=== PATIENT | female | born 1980 | race Caucasian/White ===

== ENCOUNTER 2018-03-01 12:33 | Emergency (ER) | payer MEDICAID ==
[~2018-03-01 12:33] MED LIST: INSU100C6 SQ; INSU100V12 SQ
[2018-03-01 13:14] LABS: APPEARANCE,URINE Clear (CLEAR); BILIRUBIN,URINE Negative (NEGATIVE); COLOR,URINE Yellow (YELLOW); GLUCOSE, URINE (UA) >=1000 mg/dL (NEGATIVE); KETONES,URINE Negative (NEGATIVE); LEUKOCYTE ESTERASE ,URINE Trace (NEGATIVE); NITRATE,URINE Negative (NEGATIVE); OCCULT BLOOD,URINE Negative (NEGATIVE); PROTEIN,URINE Negative (NEGATIVE); UROBILINOGEN,URINE 0.2 mg/dL (0.2-1.0)
[2018-03-01 13:16] LABS: HCG,QUAL RESULT NEGATIVE (NEGATIVE)
[2018-03-01 13:22] LABS: BACTERIA,URINE Rare /HPF (None Seen); RBC,URINE None Seen /HPF (0-1)
[2018-03-01] MEDS ORDERED: ONDANSETRON HCL MDV 20ML 2 MG/ML VIAL ONE (13:27)
[2018-03-01] MEDS ORDERED: SODIUM CHLORIDE 0.9% 1000ML 1,000 ML IV ONE (13:27)
[2018-03-01 13:58] LABS: BASOPHILS % (AUTO) 0.5 % (0.0-5.0); EOSINOPHILS % (AUTO) 2.5 % (0.0-8.0); HEMATOCRIT 31.2 % (36-48); MEAN CORPUSCULAR HEMOGLOBIN 22.4 pg (27.0-33.0); MEAN CORPUSCULAR VOLUME 70.1 fL (79-99); MONOCYTES % (AUTO) 4.8 % (3.0-13.0); NEUTROPHILS % (AUTO) 74.2 % (40.0-77.0); PLATELET COUNT (AUTO) 499 K/uL (130-400); RED BLOOD CELL COUNT(AUTO) 4.46 MIL/uL (4.00-5.50); RED CELL DISTRIBUTION WIDTH 17.7 % (11.0-15.5); WHITE BLOOD COUNT (AUTO) 11.3 K/uL (4.8-10.8)
[2018-03-01 14:11] LABS: CREATININE 0.7 mg/dL (0.5-1.5); POTASSIUM 4.1 mmol/L (3.5-5.1)
[2018-03-01 14:17] LABS: ALBUMIN 3.7 g/dL (3.5-5.0); BILIRUBIN,TOTAL 0.3 mg/dL (0.2-1.0)
== END 2018-03-01 15:39 | disposition home or self-care (01) ==
LOC: EDH 12:33
DX: R11.2 Nausea with vomiting, unspecified (principal); R10.13 Epigastric pain; M54.5 Low back pain
CPT/HCPCS: 36415; 80053; 81001; 81025; 83690; 85025; 96361; 96374; 99285; J7030

== ENCOUNTER 2018-03-15 13:46 | Emergency (ER) | payer MEDICAID ==
[2018-03-15 15:05] LABS: APPEARANCE,URINE CLOUDY (CLEAR); BILIRUBIN,URINE NEGATIVE (NEGATIVE); COLOR,URINE YELLOW (YELLOW); GLUCOSE, URINE (UA) >=1000 mg/dL (NEGATIVE); KETONES,URINE NEGATIVE (NEGATIVE); LEUKOCYTE ESTERASE ,URINE SMALL (NEGATIVE); NITRATE,URINE NEGATIVE (NEGATIVE); OCCULT BLOOD,URINE MODERATE (NEGATIVE); PROTEIN,URINE TRACE (NEGATIVE); UROBILINOGEN,URINE 0.2 mg/dL (0.2-1.0)
[2018-03-15 15:14] LABS: BACTERIA,URINE Few /HPF (None Seen); SQUAMOUS EPITHELIAL CELL,UR Rare /HPF (0-2)
[2018-03-15 15:15] LABS: HCG,QUAL RESULT NEGATIVE (NEGATIVE)
[2018-03-15 15:40] LABS: BASOPHILS % (AUTO) 0.3 % (0.0-5.0); EOSINOPHILS % (AUTO) 1.8 % (0.0-8.0); HEMATOCRIT 32.8 % (36-48); MEAN CORPUSCULAR HEMOGLOBIN 22.6 pg (27.0-33.0); MEAN CORPUSCULAR VOLUME 70.8 fL (79-99); MONOCYTES % (AUTO) 5.9 % (3.0-13.0); PLATELET COUNT (AUTO) 406 K/uL (130-400); RED BLOOD CELL COUNT(AUTO) 4.63 MIL/uL (4.00-5.50)
[2018-03-15] MEDS ORDERED: ONDANSETRON HCL MDV 20ML 2 MG/ML VIAL ONE (15:42)
[2018-03-15 15:46] LABS: CREATININE 0.8 mg/dL (0.5-1.5); POTASSIUM 3.9 mmol/L (3.5-5.1)
[2018-03-15] MEDS ORDERED: IOPAMIDOL-370 75 ML VIAL IV ONE (15:49)
[2018-03-15 15:50] LABS: ALBUMIN 3.6 g/dL (3.5-5.0); BILIRUBIN,DIRECT 0.1 mg/dL (0.0-0.3); BILIRUBIN,TOTAL 0.4 mg/dL (0.2-1.0); TOTAL PROTEIN, SERUM 8.9 g/dL (6.0-8.3)
[2018-03-15] MEDS ORDERED: CEFTRIAXONE SODIUM 1 GM ONE (17:14)
== END 2018-03-15 17:24 | disposition home or self-care (01) ==
LOC: EDH 13:46
DX: N39.0 Urinary tract infection, site not specified (principal); N20.0 Calculus of kidney; K43.9 Ventral hernia without obstruction or gangrene; E11.65 Type 2 diabetes mellitus with hyperglycemia; I10 Essential (primary) hypertension; Z79.4 Long term (current) use of insulin
CPT/HCPCS: 36415; 74177; 80048; 80076; 81001; 81025; 83690; 85025; 96374; 96375; 99285; J0696; Q9967

== ENCOUNTER 2018-12-09 18:39 | Emergency (ER) | payer MEDICAID ==
[2018-12-09] MEDS ORDERED: TETRACAINE HCL 0.5% 4 ML OPHTH SOLN ONE (19:41)
[2018-12-09] MEDS ORDERED: FLUORESCEIN SODIUM 1 STRIP STRIP ONE (19:42)
== END 2018-12-09 20:33 | disposition home or self-care (01) ==
LOC: EDH 18:39
DX: Z77.098 Contact with and (suspected) exposure to other hazardous, chiefly nonmedicinal, chemicals (principal); E11.9 Type 2 diabetes mellitus without complications; I10 Essential (primary) hypertension; F31.9 Bipolar disorder, unspecified; F41.9 Anxiety disorder, unspecified; M19.90 Unspecified osteoarthritis, unspecified site
CPT/HCPCS: 99282

== ENCOUNTER 2019-07-07 22:13 | Emergency (ER) | payer MEDICAID ==
[2019-07-07 23:04] LABS: APPEARANCE,URINE Clear (CLEAR); BILIRUBIN,URINE Negative (NEGATIVE); COLOR,URINE Yellow (YELLOW); GLUCOSE, URINE (UA) >=1000 mg/dL (NEGATIVE); KETONES,URINE Negative (NEGATIVE); LEUKOCYTE ESTERASE ,URINE Negative (NEGATIVE); NITRATE,URINE Negative (NEGATIVE); OCCULT BLOOD,URINE Large (NEGATIVE); PH,URINE 6.5 (5.0-8.0); PROTEIN,URINE Negative (NEGATIVE)
[2019-07-07] MEDS ORDERED: SODIUM CHLORIDE 0.9% 1000ML 1,000 ML IV ONE (23:14)
[2019-07-07 23:20] LABS: BACTERIA,URINE None Seen /HPF (None Seen); WBC,URINE None Seen /HPF (0-1); YEAST,URINE BUDDING None Seen /HPF (None Seen)
[2019-07-07 23:21] LABS: MUCUS,URINE Rare LPF (None Seen); SQUAMOUS EPITHELIAL CELL,UR Few /HPF (0-2)
[2019-07-07 23:24] LABS: BASOPHILS % (AUTO) 1.6 % (0.0-5.0); EOSINOPHILS % (AUTO) 1.8 % (0.0-8.0); LYMPHOCYTES % (AUTO) 21.9 % (21.0-51.0); MEAN CORPUSCULAR HEMOGLOBIN 21.6 pg (27.0-33.0); MEAN CORPUSCULAR HGB CONC 31.7 g/dL (32.0-36.0); MEAN CORPUSCULAR VOLUME 67.9 fL (79-99); MONOCYTES % (AUTO) 3.9 % (3.0-13.0); NEUTROPHILS % (AUTO) 70.8 % (40.0-77.0); PLATELET COUNT (AUTO) 360 K/uL (130-400); RED BLOOD CELL COUNT(AUTO) 4.41 MIL/uL (4.00-5.50); WHITE BLOOD COUNT (AUTO) 12.2 K/uL (4.8-10.8)
[2019-07-07 23:30] LABS: CREATININE 0.9 mg/dL (0.5-1.5); POTASSIUM 3.8 mmol/L (3.5-5.1)
[2019-07-07 23:31] LABS: INR 0.97 (0.85-1.15); PARTIAL THROMBOPLASTIN TIME 26.4 SEC (26.3-35.5); PROTHROMBIN TIME 10.2 SEC (9.6-11.6)
[2019-07-07 23:40] LABS: ALBUMIN 3.4 g/dL (3.5-5.0); BILIRUBIN,TOTAL 0.1 mg/dL (0.2-1.0)
[2019-07-07 23:47] LABS: B-TYPE NATRIURETIC PEPTIDE < 5 pg/mL (0-100)
[2019-07-08] MEDS ORDERED: SODIUM CHLORIDE 0.9% 1000ML 1,000 ML IV ONE (00:07)
== END 2019-07-08 00:47 | disposition home or self-care (01) ==
LOC: EDH 22:13
DX: T67.3XXA Heat exhaustion, anhydrotic, initial encounter (principal); E86.9 Volume depletion, unspecified; R55 Syncope and collapse; D64.9 Anemia, unspecified; F41.9 Anxiety disorder, unspecified; F32.9 Major depressive disorder, single episode, unspecified; E11.9 Type 2 diabetes mellitus without complications; I10 Essential (primary) hypertension; M19.90 Unspecified osteoarthritis, unspecified site; Z98.890 Other specified postprocedural states; X58.XXXA Exposure to other specified factors, initial encounter; Y93.89 Activity, other specified; Y92.89 Other specified places as the place of occurrence of the external cause; Y99.8 Other external cause status
CPT/HCPCS: 36415; 71045; 80053; 81001; 82550; 83605; 83880; 84484; 84702; 85025; 85610; 85730; 93005; 96360; 99285; J7030 ×2

== ENCOUNTER 2020-10-22 17:43 | Emergency (ER) | payer MEDICAID ==
[2020-10-22] MEDS ORDERED: SODIUM CHLORIDE 0.9% 1000ML 1,000 ML IV ONE (17:44)
[2020-10-22 19:19] LABS: BASOPHILS % (AUTO) 0.3 % (0.0-5.0); EOSINOPHILS % (AUTO) 0.2 % (0.0-8.0); HEMATOCRIT 35.6 % (36-48); LYMPHOCYTES % (AUTO) 18.1 % (21.0-51.0); MEAN CORPUSCULAR HEMOGLOBIN 22.3 pg (27.0-33.0); MEAN CORPUSCULAR HGB CONC 30.1 g/dL (32.0-36.0); MEAN CORPUSCULAR VOLUME 74.3 fL (79-99); MONOCYTES % (AUTO) 5.9 % (3.0-13.0); NEUTROPHILS % (AUTO) 75.1 % (40.0-77.0); PLATELET COUNT (AUTO) 214 K/uL (130-400); RED BLOOD CELL COUNT(AUTO) 4.79 MIL/uL (4.00-5.50); RED CELL DISTRIBUTION WIDTH 15.8 % (11.0-15.5)
[2020-10-22 19:27] LABS: POTASSIUM 4.5 mmol/L (3.5-5.1)
[2020-10-22 19:32] LABS: ALBUMIN 3.8 g/dL (3.5-5.0); BILIRUBIN,TOTAL 0.1 mg/dL (0.2-1.0); TOTAL PROTEIN, SERUM 8.5 g/dL (6.0-8.3)
[2020-10-22 19:33] LABS: INR 0.91 (0.85-1.15); PARTIAL THROMBOPLASTIN TIME 23.6 SEC (26.3-35.5); PROTHROMBIN TIME 9.9 SEC (9.6-11.6)
[2020-10-22 20:05] LABS: APPEARANCE,URINE Cloudy (CLEAR); BILIRUBIN,URINE Negative (NEGATIVE); COLOR,URINE Yellow (YELLOW); GLUCOSE, URINE (UA) Negative (NEGATIVE); KETONES,URINE Negative (NEGATIVE); LEUKOCYTE ESTERASE ,URINE Negative (NEGATIVE); NITRATE,URINE Negative (NEGATIVE); OCCULT BLOOD,URINE Negative (NEGATIVE); PROTEIN,URINE Negative (NEGATIVE); UROBILINOGEN,URINE 0.2 mg/dL (0.2-1.0)
[2020-10-22 20:12] LABS: BACTERIA,URINE Few /HPF (None Seen); RBC,URINE 0-1 /HPF (0-1); SQUAMOUS EPITHELIAL CELL,UR Moderate /HPF (0-2); WBC,URINE 0-1 /HPF (0-1)
[2020-10-22 20:13] LABS: MUCUS,URINE Few LPF (None Seen)
[2020-10-22] MEDS ORDERED: METOCLOPRAMIDE 10 MG/2 ML VIAL ONE (21:11)
[2020-10-22] MEDS ORDERED: DiphenhydrAMINE HCL 50 MG/ML VIAL ONE (21:12)
[2020-10-22] MEDS ORDERED: IOHEXOL-350 75 ML VIAL IV ONE (21:31)
== END 2020-10-23 00:28 | disposition home or self-care (01) ==
LOC: EDH 17:43
DX: G43.009 Migraine without aura, not intractable, without status migrainosus (principal); R20.2 Paresthesia of skin; E11.40 Type 2 diabetes mellitus with diabetic neuropathy, unspecified; M06.9 Rheumatoid arthritis, unspecified; F41.9 Anxiety disorder, unspecified; F31.9 Bipolar disorder, unspecified; Z79.1 Long term (current) use of non-steroidal anti-inflammatories (NSAID)
CPT/HCPCS: 36415; 70450; 70496; 70498; 71045; 80053; 81001; 81025; 82550; 84484; 85025; 85610; 85730; 93005; 96361; 96374; 96375; 99285; J1200; J2765; J7030; Q9967

== ENCOUNTER 2021-02-08 18:54 | Emergency (ER) | payer MEDICAID ==
[2021-02-08] MEDS ORDERED: ORPHENADRINE CITRATE 30 MG/ML ML ONE (19:38)
[2021-02-08] MEDS ORDERED: TETRACAINE HCL 0.5% 4 ML OPHTH SOLN ONE (19:38)
[2021-02-08] MEDS ORDERED: FLUORESCEIN SODIUM 1 STRIP STRIP ONE (19:38)
[2021-02-08] MEDS ORDERED: KETOROLAC TROMETHAMINE 30MG/ML ONE (19:39)
[2021-02-08] MEDS ORDERED: ERYTHROMYCIN BASE 0.5% OPHTH OINT 1 GM TUBE ONE (21:50)
== END 2021-02-08 22:03 | disposition home or self-care (01) ==
LOC: EDH 18:54
DX: S29.012A Strain of muscle and tendon of back wall of thorax, initial encounter (principal); S39.012A Strain of muscle, fascia and tendon of lower back, initial encounter; S05.02XA Injury of conjunctiva and corneal abrasion without foreign body, left eye, initial encounter; S09.90XA Unspecified injury of head, initial encounter; F41.9 Anxiety disorder, unspecified; M19.90 Unspecified osteoarthritis, unspecified site; F32.9 Major depressive disorder, single episode, unspecified; E11.9 Type 2 diabetes mellitus without complications; I10 Essential (primary) hypertension; M06.9 Rheumatoid arthritis, unspecified; Z98.890 Other specified postprocedural states; V89.2XXA Person injured in unspecified motor-vehicle accident, traffic, initial encounter; Y93.89 Activity, other specified; Y92.488 Other paved roadways as the place of occurrence of the external cause; Y99.8 Other external cause status
CPT/HCPCS: 70450; 71250; 72125; 74176; 81025; 96374; 96375; 99285; J1885; J2360